=== PATIENT | female | born 1995 | race Caucasian/White ===

== ENCOUNTER 2024-04-16 12:24 | Emergency (ER) | payer OTHER ==
[~2024-04-16] VITALS: Ht 165.1 cm; Wt 97.1 kg
[2024-04-16 12:42] VITALS: BP 141/90; PULSE 109; RESP 19; TEMP 98.1; O2SAT 95
--- NOTE | 2024-04-16 12:50 | NUR ---
PT AMBULATED TO ER BED 7
[2024-04-16] MEDS ORDERED: SULF-59 PO (13:27)
[2024-04-16] MEDS ORDERED: NAPR-1704 PO (13:27)
--- NOTE | 2024-04-16 13:45 | NUR ---
29 YO FEMALE CO PAIN SACRAL AREA [id number] SP FALL IN SHOWER PMH- DENIES NKA
[2024-04-16] MEDS: KETOROLAC 30 MG/ML VIAL IM ONE (13:48)
[2024-04-16 13:50] VITALS: BP 107/73; PULSE 67; RESP 19; TEMP 36.72516; O2SAT 95
--- NOTE | 2024-04-16 13:50 | NUR ---
Patient discharged with v/s stable. Written and verbal after care instructions given and explained. Patient alert, oriented and verbalized understanding of instructions. Ambulatory with steady gait. All questions addressed prior to discharge. ID band removed. Patient advised to follow up with PMD. Rx of NARPOXEN, BACTRIM TABLET given. Patient educated on indication of medication including possible reaction and side effects. Opportunity to ask questions provided and answered.
== END 2024-04-16 13:50 | disposition home or self-care (01) ==
LOC: MED 12:24
DX: L03.317 Cellulitis of buttock (principal); Z79.899 Other long term (current) drug therapy
CPT/HCPCS: 81025; 96372; 99284; J1885